=== PATIENT | female | born 1975 | race Caucasian/White ===

== ENCOUNTER → 2017-05-30 | Outpatient (CLI) | payer BC ==
--- NOTE | 2017-05-31 15:16 | RAD ---
DATE: 05/30/2017 EXAM: MAMMO SURESH SCREENING BILATERAL HISTORY: Routine screening COMPARISON: 05/20/2016 The breast parenchyma is heterogeneously dense, which could reduce sensitivity of mammography. Breast parenchyma level C. FINDINGS: 2-D and 3-D tomosynthesis imaging was performed in CC and MLO projections. The fibroglandular pattern in both breasts is somewhat nodular in character. There are multiple small smooth nodules in both breasts, better delineated on the tomographic images. No definite new or enlarging breast densities are seen. No suspicious microcalcifications are evident. IMPRESSION: Stable mammograms without evidence of malignancy. BI-RADS CATEGORY: 2 BENIGN FINDING(S) RECOMMENDED FOLLOW-UP: 12M 12 MONTH FOLLOW-UP PQRS compliance statement: Patient information was entered into a reminder system with a target due date for the next mammogram. Mammography is a sensitive method for finding small breast cancers, but it does not detect them all and is not a substitute for careful clinical examination. A negative mammogram does not negate a clinically suspicious finding and should not result in delay in biopsying a clinically suspicious abnormality. "Our facility is accredited by the [employer] Mammography [employer]."
== END | disposition home or self-care (01) ==
LOC: KCIC MAMMO 14:46
PROVIDERS: ATTEND Obstetrics & Gynecology
DX: Z12.31 Encounter for screening mammogram for malignant neoplasm of breast (principal)
CPT/HCPCS: 77063; G0202; 77067

== ENCOUNTER → 2018-06-11 | Outpatient (CLI) | payer BC ==
--- NOTE | 2018-06-11 18:54 | KCIC ---
Bilateral digital screening mammograms with 3-D tomosynthesis: Reason for examination: Routine screening. Comparison is made to previous studies dated 05/30/2017 and 05/20/2016. Bilateral mammograms in CC and oblique projections were obtained with 2-D imaging and 3-D tomosynthesis imaging on a Siemens Inspiration unit and reviewed on the workstation. Interpretation was made with the benefit of CAD. The skin and nipples show no abnormalities. No abnormal axillary lymph nodes are seen. The breast parenchyma is heterogeneously dense. (Breast density: Category C.) There are small nodular parenchymal densities in the right breast which are unchanged. There appears to be new nodular parenchymal density anterior medially to the nipple line in the left breast which is seen best on CC view at approximately the 7:00 B position. Further evaluation with ultrasound is recommended. There are no other new dominant masses, suspicious calcifications or architectural distortion. Impression: New nodular density seen anterior in the left breast on cc view just medial to the nipple line at approximately the 7:00 B position. Recommend further evaluation with ultrasound. Your patient's mammogram demonstrates that she has dense breast tissue (breast density category C or D), which could hide abnormalities, and if she has other risk factors for breast cancer that have been identified, she might benefit from supplemental screening tests that may be suggested by you as her ordering physician. Dense breast tissue, in and of itself, is a relatively common condition. Therefore, this information is not provided to cause undue concern, but rather to raise your awareness and to promote discussion with your patient regarding the presence of other risk factors, in addition to dense breast tissue. Your patient's mammography results will be sent to her. BI-RAD Category 0: Incomplete. Needs additional imaging evaluation. "Our facility is accredited by the [employer] Mammography [employer]." This patient's information has been entered into a reminder system for the patient to be notified with the results of her examination and a target date for the next mammogram. Electronically signed by: Niki Albrecht MD (06/11/2018 6:50 PM) [facility]
== END | disposition home or self-care (01) ==
LOC: KCIC MAMMO 14:51
PROVIDERS: ATTEND Obstetrics & Gynecology
DX: Z12.31 Encounter for screening mammogram for malignant neoplasm of breast (principal)
CPT/HCPCS: 77063; 77067

== ENCOUNTER → 2018-06-20 | Outpatient (CLI) | payer BC ==
--- NOTE | 2018-06-20 14:22 | KCIC ---
Left breast ultrasound: Reason for examination: Nodular density on screening mammogram. Comparison is made to mammographic exam dated 06/11/2018. Ultrasound examination of the left breast was performed with attention to the area of mammographic concern and the left axilla. There is a small hypoechoic circumscribed lesion measuring 3.1 mm in size at the 7:00 position 4.5 cm from the nipple. This is smaller than would be expected from mammographic finding but could represent a complicated cyst which has regressed since previous exam. There are no other cystic or solid nodules seen. No abnormal appearing lymph nodes are seen in the axilla. IMPRESSION: Small hypoechoic lesion at the 7:00 position which has a benign fibrocystic appearance. Recommend however reevaluation with mammogram and ultrasound in 3 months to verify stability of these findings. BI-RADS Category 3: Probably Benign. "Our facility is accredited by the [employer] Mammography [employer]." This patient's information has been entered into a reminder system for the patient to be notified with the results of her examination and a target date for the next mammogram. Electronically signed by: Niki Albrecht MD (06/20/2018 2:18 PM) [facility]
== END | disposition home or self-care (01) ==
LOC: KCIC US 13:23
PROVIDERS: ATTEND Obstetrics & Gynecology
DX: N63.24 Unspecified lump in the left breast, lower inner quadrant (principal)
CPT/HCPCS: 76641

== ENCOUNTER → 2018-09-20 | Outpatient (CLI) | payer BC ==
--- NOTE | 2018-09-20 16:17 | KCIC ---
Left breast diagnostic digital mammograms with 3-D tomosynthesis: Reason for examination: Follow-up nodules. Comparison is made to previous studies dated 06/11/2018 and 05/30/2017. Bilateral mammograms in CC and oblique projections were obtained with 2-D imaging and 3-D tomosynthesis imaging on a Siemens Inspiration unit and reviewed on the workstation. Interpretation was made with the benefit of CAD. The skin and nipples show no abnormalities. No abnormal axillary lymph nodes are seen. The breast parenchyma shows scattered fatty and fibroglandular density. (Breast density: Category B.) There continues to be a 7.8 mm circumscribed nodule without calcifications in the anterior central 12:00 position of the left breast which is unchanged. There also appears to be a small nodular density medially at approximately the 7:00 position 6 cm from the nipple. Ultrasound will follow. There are no other dominant masses, suspicious calcifications or architectural distortion. Impression: Nodular densities at the 12:00 and 6:00 positions of the left breast. Ultrasound to follow. BI-RADS Category 0: Incomplete. Needs additional imaging evaluation. Left breast ultrasound: Comparison is made to previous study dated 06/20/2018. Left whole breast ultrasound including evaluation of all 4 quadrants and the retroareolar and axillary regions of the left breast was performed. In the 12:00 position 4 cm from the nipple, there is a 8.1 mm septated cystic lesion. In the 1:00 position 5 cm from the nipple, there is a 5.2 mm septated cystic lesion. In the 6:00 position 3 cm from the nipple, there is a small fibrocystic type lesion measuring 6.1 mm in greatest dimension which appears to be slightly larger. In the 7:00 position 4 cm from the nipple however there appears to be a new irregularly marginated lesion which is thought than wide and appears to measure at least 9.3 mm in size and shows some posterior acoustic shadowing. A small malignancy cannot be excluded and further evaluation with ultrasound-guided biopsy is recommended. IMPRESSION: Hypoechoic 9.3 mm irregularly marginated nodule with posterior shadowing at the 7:00 position 4 cm from the nipple which appears to be a new finding since previous exam. Recommend further evaluation with ultrasound-guided biopsy. Additional benign-appearing septated cystic and fibrocystic lesions at the 12:00, 1:00 and 6:00 positions. BI-RADS Category 4: Suspicious. These findings have been discussed with the patient and the patient's nurse practitioner, Purnima Todd, was notified about these findings at 3:00 PM on 09/20/2018. "Our facility is accredited by the [employer] Mammography [employer]." This patient's information has been entered into a reminder system for the patient to be notified with the results of her examination and a target date for the next mammogram. Electronically signed by: Niki Albrecht MD (09/20/2018 3:20 PM) [facility]
== END | disposition home or self-care (01) ==
LOC: KCIC MAMMO 12:39
PROVIDERS: ATTEND Nurse Practitioner Family
DX: Z09 Encounter for follow-up examination after completed treatment for conditions other than malignant neoplasm (principal); N63.24 Unspecified lump in the left breast, lower inner quadrant
CPT/HCPCS: 76641; 77065; G0279; 77061

== ENCOUNTER → 2018-10-29 | Outpatient (CLI) | payer BC ==
--- NOTE | 2018-10-29 17:44 | RAD ---
DATE: 10/29/2018 EXAM: DIGITAL DIAGNOSTIC LT HISTORY: Abnormal left breast ultrasound exam COMPARISON: 09/20/2018 mammographic exam and 09/20/2018 left breast ultrasound This study was interpreted with the benefit of Computerized Aided Detection (CAD). Breast Density: SCATTERED The breast parenchyma shows scattered fibroglandular densities. Breast parenchyma level B. FINDINGS: Biopsy clip marker is present within the left lower inner breast at approximately 7:00 region 5.5 cm deep from the nipple. No hematoma. The finding of question on preprocedure mammographic images of the left breast is not delineated on postprocedure images acquired as part of this exam likely due to distortion and partial removal as a result of biopsy. IMPRESSION: No suspicious finding. BI-RADS CATEGORY: 4 SUSPICIOUS ABNORMALITY- BIOPSY SHOULD BE CONSIDERED RECOMMENDED FOLLOW-UP: BIO BIOPSY RECOMMENDED PQRS compliance statement: Patient information was entered into a reminder system with a target due date to be determined based on pathology results for the next mammogram. Mammography is a sensitive method for finding small breast cancers, but it does not detect them all and is not a substitute for careful clinical examination. A negative mammogram does not negate a clinically suspicious finding and should not result in delay in biopsying a clinically suspicious abnormality. "Our facility is accredited by the [employer] Mammography Program."
--- NOTE | 2018-10-29 17:52 | RAD ---
Examination: GUID NDL PLACE/ASPI/BX History: Left breast mass Comparison/Correlation: 09/20/2018 left breast ultrasound exam Findings: Risks and benefits of ultrasound-guided biopsy with clip marker placement were discussed with the patient and informed consent was obtained. Limited ultrasound imaging was performed to determine site of needle placement. Cleansing with ChloraPrep and Betadine was performed. Medial approach utilized. Sterile gel and sterile probe cover were utilized. Total of 10 cc 1 percent lidocaine was administered. Scalpel incision was made. Introducer for a 12-gauge biopsy needle was inserted under ultrasound guidance. Utilizing 20-gauge core biopsy needle, 7 passes were made into the mass and adjacent regions. The mass cannot be delineated with certainty following obtaining of the samples. Samples were placed in a formalin jar. Biopsy clip marker was then placed via the introducer into the approximate region of the mass. The patient tolerated the procedure well. Impression: Successful biopsy of the patient's known left breast mass. Patient tolerated procedure well with no immediate complications. Electronically signed by: Waqas Ferrer MD (10/29/2018 5:47 PM) [facility]
--- NOTE | 2018-10-30 16:09 | PATHOLOGY ---
[facility] Accession Number: [id number] . 01 Material submitted: . LEFT BREAST MASS . 01 Clinical history: . Left breast mass . 02 Diagnosis: Breast tissue, left breast mass needle biopsies: - Stromal fibrosis and focal recent hemorrhage. LBQ/10/30/2018 . 02 Comment: Sections of the left breast mass needle biopsies reveal segments of breast tissue showing foci of dense stromal fibrosis. There is focal recent hemorrhage. There is no atypia or evidence of malignancy. Please correlate with mammographic findings. (JPM/db; 10/30/2018) . 02 Electronically signed: . El Abernathy MD, Pathologist NPI- [id number] . 01 Gross description: . The specimen is received in formalin, labeled "Rocio Perkins, left breast". Received are multiple needle cores of fibrofatty tissue measuring 1.4 x 1.0 x 0.1 cm in aggregate dimensions. The specimen is submitted entirely in cassettes A1 through A3. The cold ischemic time is 5 minutes. The total formalin fixation time is 12 hours and 10 minutes. (CAA; 10/29/2018) QAC/QAC . 02 Pathologist provided ICD-10: N60.31, N64.59 . 02 CPT . 045354 Specimen Comment: A courtesy copy of this report has been sent to Specimen Comment: [phone], , . Specimen Comment: Report sent to ,DR DOUGHERTY / DR YBARRA Specimen Comment: A duplicate report has been generated due to demographic updates. Performed at: [address], [place], [place] [id number] MD Tre Clark MD Phone: [phone] Performed at: [address] [id number] MD El Abernathy MD Phone: [phone]
== END | disposition home or self-care (01) ==
LOC: US 08:33
PROVIDERS: ATTEND Surgery
DX: N60.32 Fibrosclerosis of left breast (principal); N63.20 Unspecified lump in the left breast, unspecified quadrant
CPT/HCPCS: 19083; 77065; 88305; C1713; 19081; 76942